=== PATIENT | female | born 1935 | race Hispanic/Latino ===

== ENCOUNTER 2021-10-25 15:07 | Emergency (ER) | payer MEDICARE, OTHER ==
[~2021-10-25] VITALS: Ht 160 cm; Wt 89.8 kg
[~2021-10-25 15:07] MED LIST: LISINOPRIL20 MG PO
[2021-10-25] MEDS ORDERED: KETOROLAC TROME10 MG PO (17:42)
== END 2021-10-25 17:44 | disposition home or self-care (01) ==
LOC: ER 15:08
DX: M25.561 Pain in right knee (principal); M79.631 Pain in right forearm; M17.12 Unilateral primary osteoarthritis, left knee; W01.0XXA Fall on same level from slipping, tripping and stumbling without subsequent striking against object, initial encounter; Y93.01 Activity, walking, marching and hiking; Y92.480 Sidewalk as the place of occurrence of the external cause; Z88.6 Allergy status to analgesic agent; Z88.0 Allergy status to penicillin
CPT/HCPCS: 93971; 99284

== ENCOUNTER → 2022-02-12 | Outpatient (CLI) | payer MEDICARE ==
[~2022-02-12] MED LIST changes: +KETOROLAC TROME10 MG PO
== END ==
LOC: MAMMO 13:58
PROVIDERS: ATTEND Internal Medicine
DX: Z12.31 Encounter for screening mammogram for malignant neoplasm of breast (principal); Z13.820 Encounter for screening for osteoporosis
CPT/HCPCS: 77067; 77080

== ENCOUNTER → 2022-10-28 | Outpatient (CLI) | payer MEDICARE ==
[~2022-10-28] MED LIST changes: +DIATRIZOATE MEGL/DIATRIZOA SOD 30 ML BTL PO ONE
== END ==
LOC: CT 13:54
PROVIDERS: ATTEND Surgery
DX: R10.30 Lower abdominal pain, unspecified (principal)
CPT/HCPCS: 74176; Q9963

== ENCOUNTER → 2022-11-27 | Outpatient (CLI) | payer MEDICARE ==
[~2022-11-27] MED LIST changes: -DIATRIZOATE MEGL/DIATRIZOA SOD 30 ML BTL PO ONE; +GADOBENATE DIMEGLUMINE 1 ML IV ONE
[2022-11-27 09:54] LABS: CREATININE, SERUM 0.84 mg/dL (0.57-1.11)
== END ==
LOC: MRI 08:29
PROVIDERS: ATTEND Internal Medicine Critical Care Medicine
DX: R19.00 Intra-abdominal and pelvic swelling, mass and lump, unspecified site (principal)
CPT/HCPCS: 36415; 72197; 82565; 84520; A9577